=== PATIENT | female | born 1945 | race Caucasian/White ===

== ENCOUNTER → 2016-07-13 | Outpatient (CLI) | payer OTHER, BC ==
[2016-07-13 12:33] LABS: HEMATOCRIT 43.7 % (37.0-47.0); HEMOGLOBIN 15.4 g/dL (12.0-16.0); MEAN CORPUSCULAR HEMOGLOBIN 30.1 PG (27-31); MEAN CORPUSCULAR HGB CONC 35.2 g/dL (33-37); MEAN PLATELET VOLUME 10.1 FL (7.4-12.2); RDW COEFFICIENT OF VARIATION 12.9 % (11.5-14.5); RED BLOOD COUNT 5.12 10^6/uL (4.20-5.40); WHITE BLOOD COUNT 6.02 10^3/uL (4.8-10.8)
[2016-07-13 12:52] LABS: PROTHROMBIN TIME 11.3 secs (9.7-11.4)
[2016-07-13 12:53] LABS: ASPARTATE AMINO TRANSFERASE 22 IU/L (8-39); BILIRUBIN,TOTAL 0.9 mg/dL (0.3-1.2); BLOOD UREA NITROGEN 24 mg/dL (7-22); CALCIUM 9.2 mg/dL (8.7-10.7); CHLORIDE 102 meq/L (98-112); CREATININE 0.8 mg/dL (0.50-1.20); EST GLOMERULAR FILTRATION > 60 (>60 ml/min/1.73m(2)); GLUCOSE 96 mg/dL (78-110); POTASSIUM 4.1 meq/L (3.8-5.2); SODIUM 138 meq/L (135-145); TOTAL PROTEIN 7.4 g/dL (6.1-8.0)
--- NOTE | 2016-07-13 12:55 | DI ---
XR CXR 2VW PA/LAT,07/13/2016 12:20 PM: Clinical History: Preoperative evaluation. Previous Exam: December 29, 2014 Findings: PA and lateral views of the chest are obtained, and demonstrate some new mild blunting of the right c ostophrenic angle. Cardiomediastinum and bony thorax are unremarkable. Mild degenerative changes of the cervical spine are seen. Impression: Mild blunting of the right costophrenic angle.
--- NOTE | 2016-07-13 15:33 | EKG ---
[address] [address] Measurements Intervals [place] Rate: 70 P: 61 [place]: 190 QRS: 79 QRSD: 97 T: 22 QT: 393 QTc: 414 Interpretive Statements SINUS RHYTHM Compared to ECG 05/15/2015 08:51:57 Sinus bradycardia no longer present Electronically Signed On 07-13-16 20:03:23 MST by Modesto Fernandez [email or web address]
== END ==
LOC: LAB 11:21
PROVIDERS: ATTEND Neurological Surgery
DX: M48.06 Spinal stenosis, lumbar region (principal)
CPT/HCPCS: 36415; 71020; 80053; 85027; 85610; 85730; 87641; 93005; 93010

== ENCOUNTER → 2016-08-09 | Outpatient (CLI) | payer OTHER, BC ==
--- NOTE | 2016-08-09 16:26 | DI ---
UPRIGHT KUB, 08/09/2016 3:52 PM: Clinical History: Abdominal pain. Previous Exam: None at this facility. There are no soft tissue or bony abnormalities. Bowel gas pattern, psoas margins, and flank stripes a re normal. There is no free air or fluid. There are no abnormal radiodensities. Reading: Normal upright KUB exam.
== END ==
LOC: RAD 15:56
PROVIDERS: ATTEND Physician Assistant Medical
DX: R10.84 Generalized abdominal pain (principal)
CPT/HCPCS: 74000

== ENCOUNTER → 2016-11-01 | Outpatient (CLI) | payer OTHER, BC ==
--- NOTE | 2016-11-01 09:50 | DI ---
MRI LUMBAR SPINE W/O CN,11/01/2016 8:45 AM: Clinical History: Low back pain Previous Exam: March 06, 2016 Findings: Multiplanar MR images are obtained through the lumbar spine without contrast, and demonstrate some in creased lordosis of the lumbar spine. There are postsurgical changes noted within the subcutaneous fat. The patient is also status post rig ht hemilaminectomy at the L3 and L4 levels. The paraspinal musculature is unremarkable, but somewhat atrophic. The kidneys are unremarkable. Signal within the spinal cord is normal with a normal conus at the L1 level. Stable facet hypertrophy is noted. Individual intervertebral disc spaces: L1/2: There is disc desiccation and a broad-based disc bulge with facet and ligamentum flavum hypertr ophy contributing to moderate to severe left and mild right neuroforaminal narrowing. 2/3: There is disc desiccation and a broad-based disc bulge with some facet and ligamentum flavum hyp ertrophy contributing to moderate to severe left and [id number] right neural foraminal narrowin g. L3/4: There is disc desiccation and a broad-based disc bulge with some annular fissuring combining wi th facet and ligamentum flavum hypertrophy to cause moderate to severe left and mild right neuroforam inal narrowing. Patient is status post laminectomy on the right which causes some decompression of th e nerve root on the right. L4/5: There is disc desiccation and a broad-based disc bulge with some annular fissuring combining wi th facet and ligamentum flavum hypertrophy to cause severe right neural foraminal narrowing and moder ate to severe left neural foraminal narrowing. L5/S1: There is annular fissuring and disc desiccation and contributing to mild right and no signific ant left neural foraminal narrowing. Impression: L1/2: There is disc desiccation and a broad-based disc bulge with facet and ligamentum flavum hypertr ophy contributing to moderate to severe left and mild right neuroforaminal narrowing. 2/3: There is disc desiccation and a broad-based disc bulge with some facet and ligamentum flavum hyp ertrophy contributing to moderate to severe left and [id number] right neural foraminal narrowin g. L3/4: There is disc desiccation and a broad-based disc bulge with some annular fissuring combining wi th facet and ligamentum flavum hypertrophy to cause moderate to severe left and mild right neuroforam inal narrowing. Patient is status post laminectomy on the right which causes some decompression of th e nerve root on the right. L4/5: There is disc desiccation and a broad-based disc bulge with some annular fissuring combining wi th facet and ligamentum flavum hypertrophy to cause severe right neural foraminal narrowing and moder ate to severe left neural foraminal narrowing. L5/S1: There is annular fissuring and disc desiccation and contributing to mild right and no signific ant left neural foraminal narrowing.
== END ==
LOC: MRI 08:35
PROVIDERS: ATTEND Neurological Surgery
DX: M53.3 Sacrococcygeal disorders, not elsewhere classified (principal); M51.16 Intervertebral disc disorders with radiculopathy, lumbar region; M51.17 Intervertebral disc disorders with radiculopathy, lumbosacral region
CPT/HCPCS: 72148